=== PATIENT | male | born 1965 | race African-American/Black ===

== ENCOUNTER 2021-07-09 10:19 | Emergency (ER) | payer MEDICAID ==
[~2021-07-09] VITALS: Ht 190.5 cm; Wt 73.0 kg
[2021-07-09] MEDS ORDERED: IBUPROFEN 600MG TABLET PO ONE (11:00)
[2021-07-09] MEDS ORDERED: CYCL5TAB MT (13:13)
[2021-07-09] MEDS ORDERED: IBUP-2030 MT (13:13)
[2021-07-09 13:39] VITALS: BP 129/74
== END 2021-07-09 13:41 | disposition home or self-care (01) ==
LOC: ER 10:19
DX: S16.1XXA Strain of muscle, fascia and tendon at neck level, initial encounter (principal); V49.9XXA Car occupant (driver) (passenger) injured in unspecified traffic accident, initial encounter; Y93.89 Activity, other specified; Y92.89 Other specified places as the place of occurrence of the external cause; Y99.8 Other external cause status
CPT/HCPCS: 99284